=== PATIENT | male | born 1955 | race Caucasian/White ===

== ENCOUNTER 2018-12-28 12:33 | Inpatient (IN) | payer MEDICAID, MEDICARE, OTHER ==
[~2018-12-28] VITALS: Ht 180.3 cm; Wt 116.0 kg
--- NOTE | 2018-12-28 12:56 | NUR ---
FSBS=54MG/DL IN TRIAGE. ORANGE JUICE GIVEN TO PATIENT.
--- NOTE | 2018-12-28 13:40 | NUR ---
FROM LOBBY TO ROOM
--- NOTE | 2018-12-28 13:55 | NUR ---
Assumed care of patient . C/O LLE foot wound. Patient states he has not had dialysis in 2 weeks. Denies SOB, CP, and palpitations. EKG done. IV started and labs drawn. Placed on NIBP and pulse ox. Family member at bedside. Will continue to monitor.
[2018-12-28] MEDS ORDERED: SODIUM CHLORIDE FLUSH 10ML SYR IVF ONE (14:00)
[2018-12-28] MEDS ORDERED: VANCOMYCIN PER PHARMACY MC ONE (14:00)
[2018-12-28] MEDS ORDERED: VANCOMYCIN 2,000 MG in SODIUM CHLORIDE 0.9% 500 ML IV ONE (14:02)
--- NOTE | 2018-12-28 14:08 | NUR ---
Patient to ultrasound.
[2018-12-28 14:27] LABS: BASOPHILS # (AUTO) 0.05 x10^3/uL (0-0.1); BASOPHILS % (AUTO) 0 % (0-1); EOSINOPHILS # (AUTO) 0.17 x10^3/uL (0-0.4); EOSINOPHILS % (AUTO) 1 % (1-7); LYMPHOCYTES # (AUTO) 1.17 x10^3/uL (1-3.4); LYMPHOCYTES % (AUTO) 9 % (22-44); MD NO; MEAN CORPUSCULAR HEMOGLOBIN 28.9 pg (27.5-34.5); MEAN CORPUSCULAR VOLUME 87.6 fL (81-97); MEAN PLATELET VOLUME 9.1 fL (7.4-10.4); MONOCYTES % (AUTO) 7 % (2-9); NEUTROPHILS # (AUTO) 11.03 x10^3/uL (1.8-6.8); NEUTROPHILS % (AUTO) 83 % (42-75); PLATELET COUNT 363 x10^3/uL (130-400); RED BLOOD COUNT 3.94 x10^6/uL (4.38-5.82); RED CELL DISTRIBUTION WIDTH 17.6 % (9.4-14.8)
[2018-12-28 14:37] LABS: ALBUMIN 2.4 g/dL (3.4-5.0); ANION GAP 9 mmol/L (5-15); CALCIUM 8.4 mg/dL (8.5-10.1); CHLORIDE 104 mmol/L (98-107); CREATININE 3.48 mg/dL (0.7-1.3)
[2018-12-28] MEDS ORDERED: AMPICILLIN/SULBACTAM 3 GM in SODIUM CHLORIDE 0.9% 100 ML IV ONE (15:00)
--- NOTE | 2018-12-28 15:02 | NUR ---
Encouaged patient to provide UA.
[2018-12-28] MEDS ORDERED: INSU100V8 SQ (15:27)
[2018-12-28] MEDS ORDERED: ASPI-650 PO (15:27)
[2018-12-28] MEDS ORDERED: GABA600T7 PO (15:27)
[2018-12-28] MEDS ORDERED: FURO20TA3 PO (15:27)
[2018-12-28] MEDS ORDERED: BISA5TAB5 PO (15:27)
[2018-12-28] MEDS ORDERED: INSU100C SQ-INSULIN (15:27)
[2018-12-28] MEDS ORDERED: AMLO-150 PO (15:27)
[2018-12-28] MEDS ORDERED: LEVO75TA5 PO (15:27)
[2018-12-28] MEDS ORDERED: BENA20TA54 PO (15:27)
[2018-12-28 15:34] LABS: MICROSCOPIC AUTO
[2018-12-28 15:55] LABS: CULTURE INDICATED? NO
[2018-12-28] MEDS ORDERED: ZOSYN PER PHARMACY MC PRN (16:00)
[2018-12-28] MEDS ORDERED: BISACODYL 5 MG EC TABLET PO PRN (16:00)
[2018-12-28] MEDS ORDERED: VANCOMYCIN PER PHARMACY MC PRN (16:00)
[2018-12-28] MEDS: INSULIN LISPRO 100 UNITS/ML, PEN SQ-INSULIN SCH ×2 (16:00→20:26)
[2018-12-28] MEDS: HEPARIN 5,000 UNITS/ML, 1ML SQ SCH (16:00)
--- NOTE | 2018-12-28 16:22 | NUR ---
Patient to MRI. Pharmacy requesting that Vanco be hung now, but patient cannot go to MRI with IV pump.
[2018-12-28] MEDS ORDERED: PHARMACOKINETIC MONITORING MC PRN (16:30)
--- NOTE | 2018-12-28 16:46 | NUR ---
Report to MARY JO Ribera.
[2018-12-28 16:47] LABS: HEMOGLOBIN A1C 10.2 % (4.2-6.3)
--- NOTE | 2018-12-28 17:09 | NUR ---
Lidia jay. Pt to xray.
[2018-12-28] MEDS: CARVEDILOL 6.25 MG TABLET PO SCH (18:00)
[2018-12-28] MEDS: ISOSORBIDE DINITRATE 10 MG TABLET PO SCH ×2 (18:42→20:25)
[2018-12-28 20:00] VITALS: BP 119/63
[2018-12-28] MEDS: PIPERACILLIN/TAZO/PMX 2.25GM 50 ML IVPB SCH (20:25)
[2018-12-28] MEDS: GABAPENTIN 300 MG CAPSULE PO SCH (20:26)
[2018-12-28] MEDS ORDERED: INSULIN GLARGINE 100 UNITS/ML, PEN SQ-INSULIN SCH (21:00)
[2018-12-29] MEDS ORDERED: CALCIUM CARBONATE 500 MG TAB.CHEW PO ONE (01:30)
[2018-12-29] MEDS: HEPARIN 5,000 UNITS/ML, 1ML SQ SCH ×3 (01:35→17:30)
[2018-12-29 02:00] VITALS: BP 144/72
[2018-12-29] MEDS: PIPERACILLIN/TAZO/PMX 2.25GM 50 ML IVPB SCH ×3 (04:13→16:00)
[2018-12-29] MEDS: CARVEDILOL 6.25 MG TABLET PO SCH ×2 (05:39→18:34)
[2018-12-29 05:43] LABS: BASOPHILS # (AUTO) 0.08 x10^3/uL (0-0.1); BASOPHILS % (AUTO) 1 % (0-1); EOSINOPHILS # (AUTO) 0.36 x10^3/uL (0-0.4); EOSINOPHILS % (AUTO) 3 % (1-7); LYMPHOCYTES # (AUTO) 1.21 x10^3/uL (1-3.4); LYMPHOCYTES % (AUTO) 11 % (22-44); MD NO; MEAN CORPUSCULAR HEMOGLOBIN 28.7 pg (27.5-34.5); MEAN CORPUSCULAR VOLUME 87.1 fL (81-97); MEAN PLATELET VOLUME 9.6 fL (7.4-10.4); MONOCYTES # (AUTO) 0.69 x10^3/uL (0.2-0.8); MONOCYTES % (AUTO) 6 % (2-9); NEUTROPHILS # (AUTO) 8.64 x10^3/uL (1.8-6.8); NEUTROPHILS % (AUTO) 79 % (42-75); PLATELET COUNT 343 x10^3/uL (130-400); RED BLOOD COUNT 3.64 x10^6/uL (4.38-5.82); RED CELL DISTRIBUTION WIDTH 17.2 % (9.4-14.8)
[2018-12-29 05:56] LABS: CHLORIDE 108 mmol/L (98-107)
[2018-12-29 06:05] LABS: ANION GAP 8 mmol/L (5-15); CALCIUM 8.4 mg/dL (8.5-10.1); CREATININE 3.17 mg/dL (0.7-1.3)
[2018-12-29] MEDS: INSULIN LISPRO 100 UNITS/ML, PEN SQ-INSULIN SCH ×4 (07:00→20:52)
[2018-12-29 07:08] VITALS: BP 140/76
[2018-12-29] MEDS: LEVOTHYROXINE 75 MCG TABLET PO SCH (09:00)
[2018-12-29] MEDS ORDERED: ASPIRIN 325 MG TABLET EC PO SCH (09:00)
[2018-12-29] MEDS: ISOSORBIDE DINITRATE 10 MG TABLET PO SCH ×3 (12:24→20:51)
[2018-12-29] MEDS: BENAZEPRIL 20 MG TABLET PO SCH (12:24)
[2018-12-29] MEDS: GABAPENTIN 300 MG CAPSULE PO SCH ×2 (12:25→20:51)
[2018-12-29 14:02] VITALS: BP 143/79
[2018-12-29] MEDS: PIPERACILLIN/TAZO/PMX 3.375GM 50 ML IV SCH ×2 (18:35→22:33)
[2018-12-29 19:10] VITALS: BP 108/62
[2018-12-29] MEDS: INSULIN GLARGINE 100 UNITS/ML, PEN SQ-INSULIN SCH (20:52)
[2018-12-30 01:33] VITALS: BP 117/66
[2018-12-30] MEDS: HEPARIN 5,000 UNITS/ML, 1ML SQ SCH ×3 (02:00→17:27)
[2018-12-30] MEDS: ACETAMINOPHEN 325 MG TABLET PO PRN ×2 (03:46→17:24)
[2018-12-30] MEDS: PIPERACILLIN/TAZO/PMX 3.375GM 50 ML IV SCH ×4 (04:18→22:14)
[2018-12-30 05:09] LABS: BASOPHILS # (AUTO) 0.07 x10^3/uL (0-0.1); BASOPHILS % (AUTO) 1 % (0-1); EOSINOPHILS # (AUTO) 0.38 x10^3/uL (0-0.4); EOSINOPHILS % (AUTO) 4 % (1-7); LYMPHOCYTES # (AUTO) 1.41 x10^3/uL (1-3.4); LYMPHOCYTES % (AUTO) 13 % (22-44); MD NO; MEAN CORPUSCULAR HEMOGLOBIN 29.2 pg (27.5-34.5); MEAN CORPUSCULAR HGB CONC 33.1 g/dL (33.2-36.2); MEAN CORPUSCULAR VOLUME 88.3 fL (81-97); MEAN PLATELET VOLUME 9.7 fL (7.4-10.4); MONOCYTES # (AUTO) 0.85 x10^3/uL (0.2-0.8); MONOCYTES % (AUTO) 8 % (2-9); NEUTROPHILS % (AUTO) 75 % (42-75); PLATELET COUNT 321 x10^3/uL (130-400); RED BLOOD COUNT 3.45 x10^6/uL (4.38-5.82); RED CELL DISTRIBUTION WIDTH 17.3 % (9.4-14.8)
[2018-12-30 05:22] LABS: CHLORIDE 106 mmol/L (98-107)
[2018-12-30 05:31] LABS: ANION GAP 10 mmol/L (5-15); CALCIUM 8.3 mg/dL (8.5-10.1); CREATININE 3.67 mg/dL (0.7-1.3)
[2018-12-30] MEDS: CARVEDILOL 6.25 MG TABLET PO SCH ×2 (06:38→17:27)
[2018-12-30] MEDS: INSULIN LISPRO 100 UNITS/ML, PEN SQ-INSULIN SCH ×4 (07:00→22:14)
[2018-12-30 08:19] VITALS: BP 104/62
[2018-12-30] MEDS: BENAZEPRIL 20 MG TABLET PO SCH (08:57)
[2018-12-30] MEDS: GABAPENTIN 300 MG CAPSULE PO SCH ×2 (08:57→20:03)
[2018-12-30] MEDS: LEVOTHYROXINE 75 MCG TABLET PO SCH (08:57)
[2018-12-30] MEDS: ISOSORBIDE DINITRATE 10 MG TABLET PO SCH ×3 (08:57→20:04)
[2018-12-30] MEDS ORDERED: FENTANYL PF 100 MCG/2ML ONE ×3 (10:09→12:55)
[2018-12-30] MEDS ORDERED: MIDAZOLAM 1 MG/ML, 2ML ONE (10:10)
[2018-12-30] MEDS ORDERED: ACETAMINOPHEN 325 MG TABLET PO PRN (10:30)
[2018-12-30] MEDS ORDERED: hydrALAzine 20 MG/ML, 1ML IV PRN (10:30)
[2018-12-30] MEDS ORDERED: PROMETHAZINE 25 MG/ML, 1ML IV PRN (10:30)
[2018-12-30] MEDS ORDERED: OXYcodone 5 MG/5 ML ORAL.SOL UDC PO PRN ×2 (10:30→17:30)
[2018-12-30] MEDS ORDERED: ALBUTEROL/IPRATROPIUM 2.5MG/0.5MG, 3 ML NPPB PRN (10:30)
[2018-12-30] MEDS ORDERED: MIDAZOLAM 1 MG/ML, 2ML IV PRN (10:30)
[2018-12-30] MEDS ORDERED: FENTANYL PF 100 MCG/2ML IV PRN (10:30)
[2018-12-30] MEDS ORDERED: ONDANSETRON 2MG/ML, 2ML IV PRN (10:30)
[2018-12-30] MEDS ORDERED: TOBRAMYCIN SULFATE 1.2 GM IMP ONE (10:31)
[2018-12-30] MEDS ORDERED: VANCOMYCIN 1,000 MG ONE (10:31)
[2018-12-30] MEDS ORDERED: LIDOCAINE 2%, 6 ML JEL.PF.APP MM ONE (10:55)
[2018-12-30] MEDS ORDERED: BUPIVACAINE/PF 0.5% ONE (11:15)
[2018-12-30] MEDS ORDERED: LIDOCAINE 1%, 20ML ONE (11:15)
[2018-12-30] MEDS ORDERED: PROPOFOL 10 MG/ML, 20ML ONE (11:24)
[2018-12-30] MEDS ORDERED: ONDANSETRON 2MG/ML, 2ML ONE (11:24)
[2018-12-30] MEDS ORDERED: TRANEXAMIC ACID 100 MG/ML, 10ML ONE (11:39)
[2018-12-30] MEDS ORDERED: OXYcodone 5 MG/5 ML ORAL.SOL UDC ONE (12:55)
[2018-12-30 14:01] VITALS: BP 95/60
[2018-12-30] MEDS ORDERED: VANCOMYCIN 1,700 MG in SODIUM CHLORIDE 0.9% 250 ML IV ONE (17:00)
[2018-12-30 19:13] VITALS: BP 90/54
[2018-12-30] MEDS: MORPHINE SULFATE 4 MG/ML, 1ML IVPush PRN (20:04)
[2018-12-30 20:10] VITALS: BP 94/58
[2018-12-30] MEDS: INSULIN GLARGINE 100 UNITS/ML, PEN SQ-INSULIN SCH (22:14)
[2018-12-31] MEDS ORDERED: MAALOX/HYOSCYAMINE/LIDOCAINE 45 ML BTL PO ONE
[2018-12-31] MEDS: HEPARIN 5,000 UNITS/ML, 1ML SQ SCH ×3 (01:14→17:12)
[2018-12-31 01:18] VITALS: BP 108/52
[2018-12-31 04:25] VITALS: BP 121/68
[2018-12-31 04:59] LABS: ANION GAP 9 mmol/L (5-15); CALCIUM 7.9 mg/dL (8.5-10.1); CHLORIDE 107 mmol/L (98-107)
[2018-12-31 05:06] LABS: CREATININE 4.27 mg/dL (0.7-1.3)
[2018-12-31 05:15] VITALS: BP 105/54
[2018-12-31] MEDS: ASPIRIN 81 MG TABLET EC PO SCH (05:16)
[2018-12-31] MEDS: PIPERACILLIN/TAZO/PMX 3.375GM 50 ML IV SCH ×3 (05:16→17:11)
[2018-12-31] MEDS: MORPHINE SULFATE 4 MG/ML, 1ML IVPush PRN ×5 (05:16→22:56)
[2018-12-31] MEDS: LEVOTHYROXINE 75 MCG TABLET PO SCH (05:17)
[2018-12-31] MEDS: CARVEDILOL 6.25 MG TABLET PO SCH ×2 (05:17→17:12)
[2018-12-31] MEDS ORDERED: ASPIRIN 81 MG TABLET EC PO SCH (06:00)
[2018-12-31] MEDS ORDERED: ASPIRIN 325 MG TABLET EC PO SCH (06:00)
[2018-12-31] MEDS: INSULIN LISPRO 100 UNITS/ML, PEN SQ-INSULIN SCH ×4 (06:16→20:24)
[2018-12-31] MEDS ORDERED: FUROSEMIDE 40 MG TABLET PO SCH (09:00)
[2018-12-31] MEDS ORDERED: BENAZEPRIL 20 MG TABLET PO SCH (09:00)
[2018-12-31] MEDS ORDERED: AMLODIPINE 10 MG TAB PO SCH (09:00)
[2018-12-31] MEDS: GABAPENTIN 300 MG CAPSULE PO SCH ×2 (09:07→20:25)
[2018-12-31] MEDS: ISOSORBIDE DINITRATE 10 MG TABLET PO SCH ×3 (09:08→20:25)
[2018-12-31] MEDS: SODIUM CHLORIDE 0.9% 1,000 ML IV SCH (09:09)
[2018-12-31 09:29] VITALS: BP 94/56
[2018-12-31 15:39] VITALS: BP 94/57
[2018-12-31] MEDS: ACETAMINOPHEN 325 MG TABLET PO SCH (17:12)
[2018-12-31 20:07] VITALS: BP 115/63
[2018-12-31] MEDS: INSULIN GLARGINE 100 UNITS/ML, PEN SQ-INSULIN SCH (20:23)
[2019-01-01] MEDS: ACETAMINOPHEN 325 MG TABLET PO SCH ×4 (00:17→18:12)
[2019-01-01] MEDS: PIPERACILLIN/TAZO/PMX 3.375GM 50 ML IV SCH ×3 (00:17→11:44)
[2019-01-01 01:00] VITALS: BP 88/39
[2019-01-01 01:15] VITALS: BP 83/39
[2019-01-01] MEDS: HEPARIN 5,000 UNITS/ML, 1ML SQ SCH ×3 (02:07→18:12)
[2019-01-01] MEDS: ASPIRIN 81 MG TABLET EC PO SCH (05:40)
[2019-01-01] MEDS: LEVOTHYROXINE 75 MCG TABLET PO SCH (05:40)
[2019-01-01] MEDS: SODIUM CHLORIDE 0.9% 1,000 ML IV SCH ×3 (05:41→17:33)
[2019-01-01] MEDS: CARVEDILOL 6.25 MG TABLET PO SCH ×3 (05:41→21:59)
[2019-01-01] MEDS: INSULIN LISPRO 100 UNITS/ML, PEN SQ-INSULIN SCH ×4 (05:51→21:00)
[2019-01-01 06:28] LABS: CHLORIDE 108 mmol/L (98-107)
[2019-01-01 06:35] LABS: ANION GAP 10 mmol/L (5-15); CALCIUM 8.1 mg/dL (8.5-10.1)
[2019-01-01 07:55] VITALS: BP 86/43
[2019-01-01] MEDS: GABAPENTIN 300 MG CAPSULE PO SCH ×2 (09:37→21:58)
[2019-01-01] MEDS: ONDANSETRON 2MG/ML, 2ML IVPush PRN ×2 (12:13→22:53)
[2019-01-01 14:19] VITALS: BP 105/64
[2019-01-01] MEDS: PIPERACILLIN/TAZO/PMX 2.25GM 50 ML IVPB SCH (19:52)
[2019-01-01] MEDS ORDERED: PIPERACILLIN/TAZO 2.25 GM in NS 50 ML IV SCH (20:00)
[2019-01-01 20:01] VITALS: BP 130/74
[2019-01-01] MEDS: INSULIN GLARGINE 100 UNITS/ML, PEN SQ-INSULIN SCH (21:58)
[2019-01-01] MEDS: CALCIUM CARBONATE 500 MG TAB.CHEW PO PRN (21:59)
[2019-01-02] MEDS: ACETAMINOPHEN 325 MG TABLET PO SCH ×4 (00:30→23:13)
[2019-01-02] MEDS: HEPARIN 5,000 UNITS/ML, 1ML SQ SCH ×2 (02:43→16:53)
[2019-01-02 02:53] VITALS: BP 123/71
[2019-01-02] MEDS: PIPERACILLIN/TAZO/PMX 2.25GM 50 ML IVPB SCH (03:50)
[2019-01-02] MEDS: LEVOTHYROXINE 75 MCG TABLET PO SCH (03:52)
[2019-01-02 05:55] LABS: BASOPHILS # (AUTO) 0.09 x10^3/uL (0-0.1); BASOPHILS % (AUTO) 1 % (0-1); EOSINOPHILS # (AUTO) 0.54 x10^3/uL (0-0.4); EOSINOPHILS % (AUTO) 5 % (1-7); LYMPHOCYTES % (AUTO) 18 % (22-44); MD NO; MEAN CORPUSCULAR HEMOGLOBIN 28.7 pg (27.5-34.5); MEAN CORPUSCULAR HGB CONC 32.7 g/dL (33.2-36.2); MEAN CORPUSCULAR VOLUME 87.9 fL (81-97); MONOCYTES # (AUTO) 0.63 x10^3/uL (0.2-0.8); MONOCYTES % (AUTO) 6 % (2-9); NEUTROPHILS # (AUTO) 8.05 x10^3/uL (1.8-6.8); NEUTROPHILS % (AUTO) 71 % (42-75); PLATELET COUNT 361 x10^3/uL (130-400); RED CELL DISTRIBUTION WIDTH 18.4 % (9.4-14.8)
[2019-01-02] MEDS: CARVEDILOL 6.25 MG TABLET PO SCH (06:04)
[2019-01-02] MEDS: CALCIUM CARBONATE 500 MG TAB.CHEW PO PRN ×2 (06:04→12:27)
[2019-01-02] MEDS: ASPIRIN 81 MG TABLET EC PO SCH (06:04)
[2019-01-02] MEDS: INSULIN LISPRO 100 UNITS/ML, PEN SQ-INSULIN SCH ×4 (06:05→20:51)
[2019-01-02] MEDS: SODIUM CHLORIDE 0.9% 1,000 ML IV SCH (06:05)
[2019-01-02 06:07] LABS: CHLORIDE 105 mmol/L (98-107)
[2019-01-02 06:29] LABS: ALANINE AMINOTRANSFERASE 24 U/L (12-78); ALBUMIN 1.8 g/dL (3.4-5.0); ALKALINE PHOSPHATASE 138 U/L (45-117); ANION GAP 11 mmol/L (5-15); BILIRUBIN,TOTAL 0.3 mg/dL (0.2-1.0); CREATININE 7.73 mg/dL (0.7-1.3); TOTAL PROTEIN 7.2 g/dL (6.4-8.2)
[2019-01-02 06:56] LABS: SEDIMENTATION RATE > 120 mm/hr (0-10)
[2019-01-02 08:00] VITALS: BP 104/65
[2019-01-02] MEDS: GABAPENTIN 300 MG CAPSULE PO SCH ×2 (08:06→21:27)
[2019-01-02] MEDS: ONDANSETRON 2MG/ML, 2ML IVPush PRN ×2 (08:31→18:11)
[2019-01-02] MEDS ORDERED: CATHFLO-ALTEPLASE 2 MG/2 ML CATHFLUSH ONE (11:30)
[2019-01-02 11:39] LABS: CALCIUM 8.2 mg/dL (8.5-10.1)
[2019-01-02] MEDS ORDERED: ALBUMIN HUMAN 25% 100 ML IV PRN (13:30)
[2019-01-02 18:11] VITALS: BP 148/78
[2019-01-02] MEDS: MORPHINE SULFATE 4 MG/ML, 1ML IVPush PRN (18:21)
[2019-01-02 20:18] VITALS: BP 122/69
[2019-01-02] MEDS: AMPICILLIN/SULBACTAM 3 GM in SODIUM CHLORIDE 0.9% 100 ML IV SCH (21:28)
[2019-01-02] MEDS: INSULIN GLARGINE 100 UNITS/ML, PEN SQ-INSULIN SCH (21:28)
[2019-01-03 01:23] VITALS: BP 95/60
[2019-01-03] MEDS: HEPARIN 5,000 UNITS/ML, 1ML SQ SCH ×3 (01:26→17:55)
[2019-01-03 05:13] VITALS: BP 148/71
[2019-01-03] MEDS: ACETAMINOPHEN 325 MG TABLET PO SCH ×4 (05:14→23:21)
[2019-01-03] MEDS: ASPIRIN 81 MG TABLET EC PO SCH (05:14)
[2019-01-03] MEDS: LEVOTHYROXINE 75 MCG TABLET PO SCH (05:14)
[2019-01-03] MEDS: CARVEDILOL 6.25 MG TABLET PO SCH ×2 (05:14→17:56)
[2019-01-03 05:58] LABS: BASOPHILS # (AUTO) 0.05 x10^3/uL (0-0.1); BASOPHILS % (AUTO) 0 % (0-1); EOSINOPHILS # (AUTO) 0.42 x10^3/uL (0-0.4); EOSINOPHILS % (AUTO) 4 % (1-7); LYMPHOCYTES # (AUTO) 1.78 x10^3/uL (1-3.4); LYMPHOCYTES % (AUTO) 15 % (22-44); MD NO; MEAN CORPUSCULAR HEMOGLOBIN 29.3 pg (27.5-34.5); MEAN CORPUSCULAR HGB CONC 33.4 g/dL (33.2-36.2); MEAN CORPUSCULAR VOLUME 87.6 fL (81-97); MEAN PLATELET VOLUME 9.6 fL (7.4-10.4); MONOCYTES # (AUTO) 0.71 x10^3/uL (0.2-0.8); MONOCYTES % (AUTO) 6 % (2-9); NEUTROPHILS # (AUTO) 8.86 x10^3/uL (1.8-6.8); NEUTROPHILS % (AUTO) 75 % (42-75); PLATELET COUNT 404 x10^3/uL (130-400); RED BLOOD COUNT 3.43 x10^6/uL (4.38-5.82); RED CELL DISTRIBUTION WIDTH 18.1 % (9.4-14.8)
[2019-01-03 06:04] LABS: ALBUMIN 2.2 g/dL (3.4-5.0); ANION GAP 9 mmol/L (5-15); CALCIUM 8.2 mg/dL (8.5-10.1); CHLORIDE 105 mmol/L (98-107)
[2019-01-03] MEDS: INSULIN LISPRO 100 UNITS/ML, PEN SQ-INSULIN SCH ×4 (07:00→20:38)
[2019-01-03] MEDS ORDERED: DEXTROSE 50%, 50ML SYRINGE ONE (07:00)
[2019-01-03 07:25] VITALS: BP 124/79
[2019-01-03] MEDS ORDERED: GLUCAGON 1 MG IM PRN (07:30)
[2019-01-03] MEDS ORDERED: DEXTROSE 50%, 50ML SYRINGE IVPush PRN (07:30)
[2019-01-03] MEDS ORDERED: DEXTROSE 4 GM TAB.CHEW PO PRN (07:30)
[2019-01-03] MEDS: OXYcodone 5 MG/5 ML ORAL.SOL UDC PO PRN ×2 (08:47→17:55)
[2019-01-03] MEDS: ONDANSETRON ODT 4 MG PO PRN (08:47)
[2019-01-03] MEDS: GABAPENTIN 300 MG CAPSULE PO SCH ×2 (08:47→20:36)
[2019-01-03] MEDS: SODIUM CHLORIDE FLUSH 10ML SYR IVF SCH ×2 (08:48→20:37)
[2019-01-03] MEDS: ERGOCALCIFEROL 50,000 UNIT CAPSULE PO SCH (11:57)
[2019-01-03] MEDS: CALCIUM CARBONATE 500 MG TAB.CHEW PO PRN (11:57)
[2019-01-03 14:22] VITALS: BP 128/69
[2019-01-03] MEDS: MORPHINE SULFATE 4 MG/ML, 1ML IVPush PRN (14:22)
[2019-01-03 20:15] VITALS: BP 148/75
[2019-01-03] MEDS: AMPICILLIN/SULBACTAM 3 GM in SODIUM CHLORIDE 0.9% 100 ML IV SCH (20:36)
[2019-01-03] MEDS: INSULIN GLARGINE 100 UNITS/ML, PEN SQ-INSULIN SCH (20:38)
[2019-01-04] MEDS: HEPARIN 5,000 UNITS/ML, 1ML SQ SCH ×3 (01:50→19:22)
[2019-01-04] MEDS: OXYcodone 5 MG/5 ML ORAL.SOL UDC PO PRN ×3 (01:50→19:22)
[2019-01-04 01:51] VITALS: BP 136/63
[2019-01-04] MEDS: CALCIUM CARBONATE 500 MG TAB.CHEW PO PRN (02:17)
[2019-01-04] MEDS: ACETAMINOPHEN 325 MG TABLET PO SCH ×4 (05:51→23:02)
[2019-01-04] MEDS: ASPIRIN 81 MG TABLET EC PO SCH (05:51)
[2019-01-04] MEDS: LEVOTHYROXINE 75 MCG TABLET PO SCH (05:51)
[2019-01-04] MEDS: CARVEDILOL 6.25 MG TABLET PO SCH ×2 (05:51→18:28)
[2019-01-04 05:55] LABS: BASOPHILS # (AUTO) 0.07 x10^3/uL (0-0.1); BASOPHILS % (AUTO) 1 % (0-1); EOSINOPHILS % (AUTO) 5 % (1-7); LYMPHOCYTES # (AUTO) 2.42 x10^3/uL (1-3.4); LYMPHOCYTES % (AUTO) 23 % (22-44); MD NO; MEAN CORPUSCULAR HEMOGLOBIN 28.3 pg (27.5-34.5); MEAN CORPUSCULAR VOLUME 88.6 fL (81-97); MEAN PLATELET VOLUME 9.5 fL (7.4-10.4); MONOCYTES # (AUTO) 0.67 x10^3/uL (0.2-0.8); MONOCYTES % (AUTO) 7 % (2-9); NEUTROPHILS # (AUTO) 6.68 x10^3/uL (1.8-6.8); NEUTROPHILS % (AUTO) 65 % (42-75); PLATELET COUNT 380 x10^3/uL (130-400); RED BLOOD COUNT 3.25 x10^6/uL (4.38-5.82); RED CELL DISTRIBUTION WIDTH 17.9 % (9.4-14.8)
[2019-01-04 06:01] LABS: ALBUMIN 2.1 g/dL (3.4-5.0); ANION GAP 7 mmol/L (5-15); CHLORIDE 101 mmol/L (98-107)
[2019-01-04 06:07] LABS: ALANINE AMINOTRANSFERASE 31 U/L (12-78); ALKALINE PHOSPHATASE 138 U/L (45-117); BILIRUBIN,TOTAL 0.4 mg/dL (0.2-1.0); CREATININE 4.94 mg/dL (0.7-1.3); TOTAL PROTEIN 7.4 g/dL (6.4-8.2)
[2019-01-04 07:56] VITALS: BP 123/65
[2019-01-04] MEDS: INSULIN LISPRO 100 UNITS/ML, PEN SQ-INSULIN SCH ×4 (08:30→21:01)
[2019-01-04] MEDS: LACTOBACILLUS CHEW TABLET PO SCH ×3 (11:44→20:57)
[2019-01-04] MEDS: GABAPENTIN 300 MG CAPSULE PO SCH ×2 (11:44→20:57)
[2019-01-04] MEDS: SODIUM CHLORIDE FLUSH 10ML SYR IVF SCH ×2 (11:47→20:57)
[2019-01-04 13:26] VITALS: BP 172/80
[2019-01-04 15:45] VITALS: BP 167/79
[2019-01-04] MEDS: AMPICILLIN/SULBACTAM 3 GM in SODIUM CHLORIDE 0.9% 100 ML IV SCH (19:22)
[2019-01-04 19:59] VITALS: BP 166/91
[2019-01-04] MEDS: INSULIN GLARGINE 100 UNITS/ML, PEN SQ-INSULIN SCH (21:01)
[2019-01-05 01:58] VITALS: BP 153/75
[2019-01-05] MEDS: OXYcodone 5 MG/5 ML ORAL.SOL UDC PO PRN ×2 (02:00→17:05)
[2019-01-05] MEDS: ONDANSETRON 2MG/ML, 2ML IVPush PRN (03:30)
[2019-01-05] MEDS: HEPARIN 5,000 UNITS/ML, 1ML SQ SCH ×3 (03:30→20:51)
[2019-01-05] MEDS: CARVEDILOL 6.25 MG TABLET PO SCH ×2 (05:25→17:05)
[2019-01-05] MEDS: ASPIRIN 81 MG TABLET EC PO SCH (05:25)
[2019-01-05] MEDS: ACETAMINOPHEN 325 MG TABLET PO SCH ×4 (05:25→23:00)
[2019-01-05] MEDS: LEVOTHYROXINE 75 MCG TABLET PO SCH (05:25)
[2019-01-05] MEDS: INSULIN LISPRO 100 UNITS/ML, PEN SQ-INSULIN SCH ×4 (07:00→21:35)
[2019-01-05 07:42] VITALS: BP 149/69
[2019-01-05] MEDS: ISOSORBIDE DINITRATE 10 MG TABLET PO SCH ×3 (08:13→20:52)
[2019-01-05] MEDS: LACTOBACILLUS CHEW TABLET PO SCH ×3 (08:13→20:51)
[2019-01-05] MEDS: ONDANSETRON ODT 4 MG PO PRN (08:14)
[2019-01-05] MEDS: GABAPENTIN 300 MG CAPSULE PO SCH (08:14)
[2019-01-05] MEDS: MORPHINE SULFATE 4 MG/ML, 1ML IVPush PRN ×2 (08:14→21:34)
[2019-01-05] MEDS: SODIUM CHLORIDE FLUSH 10ML SYR IVF SCH ×2 (08:14→20:52)
[2019-01-05 13:15] VITALS: BP 159/73
[2019-01-05] MEDS: GABAPENTIN 100 MG CAPSULE PO SCH ×2 (17:05→20:51)
[2019-01-05 20:03] VITALS: BP 115/62
[2019-01-05] MEDS: AMPICILLIN/SULBACTAM 3 GM in SODIUM CHLORIDE 0.9% 100 ML IV SCH (20:51)
[2019-01-05] MEDS: INSULIN GLARGINE 100 UNITS/ML, PEN SQ-INSULIN SCH (21:35)
[2019-01-06] MEDS: OXYcodone 5 MG/5 ML ORAL.SOL UDC PO PRN ×2 (00:59→17:00)
[2019-01-06 01:17] VITALS: BP 155/70
[2019-01-06] MEDS: HEPARIN 5,000 UNITS/ML, 1ML SQ SCH ×3 (05:17→21:23)
[2019-01-06] MEDS: ACETAMINOPHEN 325 MG TABLET PO SCH ×4 (05:17→23:21)
[2019-01-06] MEDS: LEVOTHYROXINE 75 MCG TABLET PO SCH (05:19)
[2019-01-06] MEDS: CARVEDILOL 6.25 MG TABLET PO SCH ×2 (05:19→16:54)
[2019-01-06] MEDS: ASPIRIN 81 MG TABLET EC PO SCH (05:27)
[2019-01-06 06:36] LABS: ALBUMIN 2.2 g/dL (3.4-5.0); ANION GAP 9 mmol/L (5-15); CALCIUM 7.8 mg/dL (8.5-10.1); CHLORIDE 98 mmol/L (98-107)
[2019-01-06 06:40] LABS: ALANINE AMINOTRANSFERASE 31 U/L (12-78); ALKALINE PHOSPHATASE 155 U/L (45-117); BILIRUBIN,TOTAL 0.6 mg/dL (0.2-1.0); CREATININE 4.91 mg/dL (0.7-1.3); TOTAL PROTEIN 7.8 g/dL (6.4-8.2)
[2019-01-06 06:48] VITALS: BP 172/98
[2019-01-06] MEDS: INSULIN LISPRO 100 UNITS/ML, PEN SQ-INSULIN SCH ×4 (07:00→21:20)
[2019-01-06 07:01] LABS: BASOPHILS # (AUTO) 0.07 x10^3/uL (0-0.1); BASOPHILS % (AUTO) 1 % (0-1); EOSINOPHILS # (AUTO) 0.46 x10^3/uL (0-0.4); EOSINOPHILS % (AUTO) 4 % (1-7); LYMPHOCYTES # (AUTO) 1.85 x10^3/uL (1-3.4); LYMPHOCYTES % (AUTO) 17 % (22-44); MD NO; MEAN CORPUSCULAR HEMOGLOBIN 28.7 pg (27.5-34.5); MEAN CORPUSCULAR HGB CONC 32.5 g/dL (33.2-36.2); MEAN CORPUSCULAR VOLUME 88.2 fL (81-97); MEAN PLATELET VOLUME 9.3 fL (7.4-10.4); MONOCYTES # (AUTO) 0.57 x10^3/uL (0.2-0.8); MONOCYTES % (AUTO) 5 % (2-9); NEUTROPHILS # (AUTO) 7.95 x10^3/uL (1.8-6.8); NEUTROPHILS % (AUTO) 73 % (42-75); PLATELET COUNT 402 x10^3/uL (130-400); RED BLOOD COUNT 3.29 x10^6/uL (4.38-5.82); RED CELL DISTRIBUTION WIDTH 17.8 % (9.4-14.8)
[2019-01-06] MEDS: GABAPENTIN 100 MG CAPSULE PO SCH ×3 (09:13→21:19)
[2019-01-06] MEDS: LACTOBACILLUS CHEW TABLET PO SCH ×3 (09:13→21:19)
[2019-01-06] MEDS: ISOSORBIDE DINITRATE 10 MG TABLET PO SCH ×3 (09:14→21:22)
[2019-01-06] MEDS: SODIUM CHLORIDE FLUSH 10ML SYR IVF SCH ×2 (09:14→21:24)
[2019-01-06] MEDS: MORPHINE SULFATE 4 MG/ML, 1ML IVPush PRN ×2 (09:17→21:19)
[2019-01-06] MEDS ORDERED: ARANESP 40 MCG/ML **ESRD SQ SCH (11:30)
[2019-01-06 15:50] VITALS: BP 149/64
[2019-01-06] MEDS: ONDANSETRON ODT 4 MG PO PRN (17:00)
[2019-01-06 19:51] VITALS: BP 156/69
[2019-01-06] MEDS: AMPICILLIN/SULBACTAM 3 GM in SODIUM CHLORIDE 0.9% 100 ML IV SCH (21:19)
[2019-01-06] MEDS: INSULIN GLARGINE 100 UNITS/ML, PEN SQ-INSULIN SCH (21:20)
[2019-01-07 00:59] VITALS: BP 154/78
[2019-01-07] MEDS: ACETAMINOPHEN 325 MG TABLET PO SCH ×4 (05:25→23:34)
[2019-01-07] MEDS: LEVOTHYROXINE 75 MCG TABLET PO SCH (05:25)
[2019-01-07] MEDS: ASPIRIN 81 MG TABLET EC PO SCH (05:25)
[2019-01-07] MEDS: OXYcodone 5 MG/5 ML ORAL.SOL UDC PO PRN ×2 (05:25→18:39)
[2019-01-07] MEDS: CARVEDILOL 6.25 MG TABLET PO SCH ×2 (05:25→16:42)
[2019-01-07] MEDS: HEPARIN 5,000 UNITS/ML, 1ML SQ SCH ×3 (05:26→20:49)
[2019-01-07] MEDS: INSULIN LISPRO 100 UNITS/ML, PEN SQ-INSULIN SCH ×4 (07:00→20:50)
[2019-01-07 08:00] VITALS: BP 132/60
[2019-01-07] MEDS: LACTOBACILLUS CHEW TABLET PO SCH ×3 (08:02→20:48)
[2019-01-07] MEDS: ISOSORBIDE DINITRATE 10 MG TABLET PO SCH ×4 (08:02→20:48)
[2019-01-07] MEDS: GABAPENTIN 100 MG CAPSULE PO SCH ×3 (08:02→20:49)
[2019-01-07] MEDS: SODIUM CHLORIDE FLUSH 10ML SYR IVF SCH ×2 (08:03→20:51)
[2019-01-07] MEDS: MORPHINE SULFATE 4 MG/ML, 1ML IVPush PRN (10:40)
[2019-01-07] MEDS: ONDANSETRON ODT 4 MG PO PRN (10:41)
[2019-01-07 13:18] VITALS: BP 162/68
[2019-01-07 19:45] VITALS: BP 143/61
[2019-01-07] MEDS: AMPICILLIN/SULBACTAM 3 GM in SODIUM CHLORIDE 0.9% 100 ML IV SCH (20:48)
[2019-01-07] MEDS: INSULIN GLARGINE 100 UNITS/ML, PEN SQ-INSULIN SCH (20:50)
[2019-01-08 00:32] VITALS: BP 155/77
[2019-01-08] MEDS: OXYcodone 5 MG/5 ML ORAL.SOL UDC PO PRN ×4 (00:41→21:40)
[2019-01-08 05:13] VITALS: BP 173/81
[2019-01-08] MEDS: HEPARIN 5,000 UNITS/ML, 1ML SQ SCH ×3 (05:16→20:31)
[2019-01-08] MEDS: ASPIRIN 81 MG TABLET EC PO SCH (05:17)
[2019-01-08] MEDS: LEVOTHYROXINE 75 MCG TABLET PO SCH (05:17)
[2019-01-08] MEDS: CARVEDILOL 6.25 MG TABLET PO SCH ×2 (05:17→17:21)
[2019-01-08] MEDS: ACETAMINOPHEN 325 MG TABLET PO SCH ×4 (05:17→23:00)
[2019-01-08 06:49] VITALS: BP 138/56
[2019-01-08 06:58] VITALS: BP 144/73
[2019-01-08] MEDS: INSULIN LISPRO 100 UNITS/ML, PEN SQ-INSULIN SCH ×4 (07:00→20:42)
[2019-01-08] MEDS: SODIUM CHLORIDE FLUSH 10ML SYR IVF SCH ×2 (08:52→20:44)
[2019-01-08] MEDS: ISOSORBIDE DINITRATE 10 MG TABLET PO SCH ×3 (08:52→20:24)
[2019-01-08] MEDS: LACTOBACILLUS CHEW TABLET PO SCH ×3 (08:52→20:24)
[2019-01-08] MEDS ORDERED: GLYCERIN ADULT SUPP PR PRN (09:00)
[2019-01-08] MEDS ORDERED: MAGNESIUM CITRATE 300ML ORAL SOL PO ONE (09:00)
[2019-01-08] MEDS: CALCIUM CARBONATE 500 MG TAB.CHEW PO PRN ×2 (12:13→17:21)
[2019-01-08 12:28] VITALS: BP 147/67
[2019-01-08 19:11] VITALS: BP 167/75
[2019-01-08] MEDS: AMPICILLIN/SULBACTAM 3 GM in SODIUM CHLORIDE 0.9% 100 ML IV SCH (20:23)
[2019-01-08] MEDS: GABAPENTIN 100 MG CAPSULE PO SCH (20:25)
[2019-01-08] MEDS: INSULIN GLARGINE 100 UNITS/ML, PEN SQ-INSULIN SCH (20:42)
[2019-01-09 01:08] VITALS: BP 137/68
[2019-01-09] MEDS: OXYcodone 5 MG/5 ML ORAL.SOL UDC PO PRN ×3 (04:24→21:21)
[2019-01-09] MEDS: ACETAMINOPHEN 325 MG TABLET PO SCH ×4 (05:00→23:29)
[2019-01-09 05:19] LABS: ANION GAP 10 mmol/L (5-15); CALCIUM 8.6 mg/dL (8.5-10.1); CHLORIDE 103 mmol/L (98-107); CREATININE 4.63 mg/dL (0.7-1.3)
[2019-01-09] MEDS: HEPARIN 5,000 UNITS/ML, 1ML SQ SCH ×3 (06:01→20:22)
[2019-01-09] MEDS: CARVEDILOL 6.25 MG TABLET PO SCH ×2 (06:03→17:32)
[2019-01-09] MEDS: LEVOTHYROXINE 75 MCG TABLET PO SCH (06:04)
[2019-01-09] MEDS: ASPIRIN 81 MG TABLET EC PO SCH (06:04)
[2019-01-09] MEDS: INSULIN LISPRO 100 UNITS/ML, PEN SQ-INSULIN SCH ×4 (07:00→21:21)
[2019-01-09 07:28] VITALS: BP 117/68
[2019-01-09] MEDS: SODIUM CHLORIDE FLUSH 10ML SYR IVF SCH ×2 (09:00→20:22)
[2019-01-09] MEDS: LACTOBACILLUS CHEW TABLET PO SCH ×3 (13:26→20:22)
[2019-01-09] MEDS: ISOSORBIDE DINITRATE 10 MG TABLET PO SCH ×3 (13:27→20:22)
[2019-01-09 13:46] VITALS: BP 128/59
[2019-01-09 16:39] VITALS: BP 159/79
[2019-01-09] MEDS: AMPICILLIN/SULBACTAM 3 GM in SODIUM CHLORIDE 0.9% 100 ML IV SCH (20:21)
[2019-01-09] MEDS: GABAPENTIN 100 MG CAPSULE PO SCH (20:22)
[2019-01-09 20:26] VITALS: BP 139/68
[2019-01-09] MEDS ORDERED: INSULIN GLARGINE 100 UNITS/ML, PEN SQ-INSULIN SCH (21:00)
[2019-01-10 02:51] VITALS: BP 154/66
[2019-01-10] MEDS: CALCIUM CARBONATE 500 MG TAB.CHEW PO PRN (04:39)
[2019-01-10] MEDS: HEPARIN 5,000 UNITS/ML, 1ML SQ SCH ×2 (04:39→13:24)
[2019-01-10] MEDS: ACETAMINOPHEN 325 MG TABLET PO SCH ×3 (04:40→16:21)
[2019-01-10 05:46] VITALS: BP 142/80
[2019-01-10] MEDS: LEVOTHYROXINE 75 MCG TABLET PO SCH (05:51)
[2019-01-10] MEDS: ASPIRIN 81 MG TABLET EC PO SCH (05:51)
[2019-01-10] MEDS: CARVEDILOL 6.25 MG TABLET PO SCH (05:51)
[2019-01-10] MEDS: OXYcodone 5 MG/5 ML ORAL.SOL UDC PO PRN (05:52)
[2019-01-10] MEDS: INSULIN LISPRO 100 UNITS/ML, PEN SQ-INSULIN SCH ×3 (07:00→16:00)
[2019-01-10 07:21] VITALS: BP 111/59
[2019-01-10] MEDS ORDERED: OXYcodone 5 MG/5 ML ORAL.SOL UDC PO PRN (07:30)
[2019-01-10] MEDS: LACTOBACILLUS CHEW TABLET PO SCH ×2 (08:27→16:28)
[2019-01-10] MEDS: ISOSORBIDE DINITRATE 10 MG TABLET PO SCH ×2 (08:27→16:28)
[2019-01-10] MEDS ORDERED: GABAPENTIN 300 MG CAPSULE PO SCH (09:00)
[2019-01-10] MEDS: SODIUM CHLORIDE FLUSH 10ML SYR IVF SCH (09:37)
[2019-01-10] MEDS: ERGOCALCIFEROL 50,000 UNIT CAPSULE PO SCH (11:48)
[2019-01-10 12:43] VITALS: BP 126/67
[2019-01-10] MEDS ORDERED: HYDR-3342 PO (15:33)
[2019-01-10] MEDS ORDERED: ACET325T14 PO (15:33)
[2019-01-10] MEDS ORDERED: BISA5TAB5 PO (15:33)
[2019-01-10] MEDS ORDERED: CARV6.2512 PO (15:33)
[2019-01-10] MEDS ORDERED: LEVO75TA PO (15:33)
[2019-01-10] MEDS ORDERED: ISOS10TA2 PO (15:33)
[2019-01-10] MEDS ORDERED: ACID1TAB7 PO (15:33)
[2019-01-10] MEDS ORDERED: INSU100I11 SQ-INSULIN (15:33)
[2019-01-10] MEDS ORDERED: GABA300C10 PO (15:33)
[2019-01-10] MEDS ORDERED: ASPI81TA45 PO (15:33)
[2019-01-10] MEDS ORDERED: ERGO500017 PO (15:33)
[2019-01-10] MEDS ORDERED: INSU100I13 SQ-INSULIN (15:33)
== END 2019-01-10 17:06 | DRG 853 ==
LOC: ED 15:06 → EDIP 15:07 → ED 15:43 → 3NE 17:03 → 4NOR 12-30 13:24 → 4EST 01-02 10:38
PROVIDERS: ADMIT Internal Medicine; ATTEND Internal Medicine
PROC: 0Y6M0ZB Detachment at Right Foot, Partial 2nd Ray, Open Approach (ICD-10-PCS; 2018-12-30)
PROC: 0Y6M0ZC Detachment at Right Foot, Partial 3rd Ray, Open Approach (ICD-10-PCS; 2018-12-30)
PROC: 0Y6M0ZD Detachment at Right Foot, Partial 4th Ray, Open Approach (ICD-10-PCS; 2018-12-30)
PROC: 0Y6M0ZF Detachment at Right Foot, Partial 5th Ray, Open Approach (ICD-10-PCS; 2018-12-30)
PROC: 0L8N0ZZ Division of Right Lower Leg Tendon, Open Approach (ICD-10-PCS; 2018-12-30)
PROC: 0Y6M0Z9 Detachment at Right Foot, Partial 1st Ray, Open Approach (ICD-10-PCS; principal; 2018-12-30 11:15)
PROC: 5A1D70Z Performance of Urinary Filtration, Intermittent, Less than 6 Hours Per Day (ICD-10-PCS; 2019-01-02)
PROC: 5A1D70Z Performance of Urinary Filtration, Intermittent, Less than 6 Hours Per Day (ICD-10-PCS; 2019-01-03)
PROC: 5A1D70Z Performance of Urinary Filtration, Intermittent, Less than 6 Hours Per Day (ICD-10-PCS; 2019-01-04)
PROC: 5A1D70Z Performance of Urinary Filtration, Intermittent, Less than 6 Hours Per Day (ICD-10-PCS; 2019-01-06)
PROC: 5A1D70Z Performance of Urinary Filtration, Intermittent, Less than 6 Hours Per Day (ICD-10-PCS; 2019-01-09)
DX: A41.9 Sepsis, unspecified organism (principal); N18.6 End stage renal disease; M86.672 Other chronic osteomyelitis, left ankle and foot; M86.172 Other acute osteomyelitis, left ankle and foot; E46 Unspecified protein-calorie malnutrition; E87.1 Hypo-osmolality and hyponatremia; E87.2 Acidosis; I12.0 Hypertensive chronic kidney disease with stage 5 chronic kidney disease or end stage renal disease; L02.619 Cutaneous abscess of unspecified foot; L03.116 Cellulitis of left lower limb; D63.1 Anemia in chronic kidney disease; E03.9 Hypothyroidism, unspecified; E11.22 Type 2 diabetes mellitus with diabetic chronic kidney disease; E11.51 Type 2 diabetes mellitus with diabetic peripheral angiopathy without gangrene; E11.621 Type 2 diabetes mellitus with foot ulcer; E11.649 Type 2 diabetes mellitus with hypoglycemia without coma; E11.65 Type 2 diabetes mellitus with hyperglycemia; E78.5 Hyperlipidemia, unspecified; E87.70 Fluid overload, unspecified; E11.42 Type 2 diabetes mellitus with diabetic polyneuropathy; E11.21 Type 2 diabetes mellitus with diabetic nephropathy; E11.69 Type 2 diabetes mellitus with other specified complication; F12.90 Cannabis use, unspecified, uncomplicated; L97.529 Non-pressure chronic ulcer of other part of left foot with unspecified severity; E66.9 Obesity, unspecified; L97.509 Non-pressure chronic ulcer of other part of unspecified foot with unspecified severity; Z76.5 Malingerer [conscious simulation]; Z79.4 Long term (current) use of insulin; Z83.3 Family history of diabetes mellitus; Z86.73 Personal history of transient ischemic attack (TIA), and cerebral infarction without residual deficits; Z91.19 Patient's noncompliance with other medical treatment and regimen; Z99.2 Dependence on renal dialysis; Z79.899 Other long term (current) drug therapy; Z88.8 Allergy status to other drugs, medicaments and biological substances; Z90.49 Acquired absence of other specified parts of digestive tract; Z68.35 Body mass index [BMI] 35.0-35.9, adult
CPT/HCPCS: 36415; 73630; 99285; J3260; J3490; 80048; 80053; 80069; 80202; 81001; 82040; 82306; 82310; 82728; 82962; 83036; 83540; 83550; 83735; 83970; 84100; 85025; 85651; 86140; 86704; 86706; 87040; 87070; 87075; 87076; 87077; 87102; 87186; 87205; 87340; 88305; 88307; 88311; 93005; 96365; 96375; G0378; J0295; J0882; J1644; J2250; J2405; J2543; J2704; J2997; J3010; J3370; Q0162; J1815; J7030; J7040; J7050